=== PATIENT | male | born 1940 | race Caucasian/White ===

== ENCOUNTER 2019-07-18 11:58 | Outpatient (CLI) | payer MEDICARE, OTHER ==
[2019-07-19 12:52] LABS: SARS-CoV-2 MS2 Positive; SARS-CoV-2 N Gene Negative; SARS-CoV-2 S Gene Negative; SARS-CoV-2 orf1ab Negative
== END 2019-07-18 11:59 | disposition home or self-care (01) ==
LOC: SCSLAB 11:58
PROVIDERS: ATTEND Internal Medicine Cardiovascular Disease
DX: Z01.812 Encounter for preprocedural laboratory examination (principal); Z11.59 Encounter for screening for other viral diseases
CPT/HCPCS: 87635; U0003

== ENCOUNTER 2020-04-16 08:57 | Outpatient (CLI) | payer MEDICARE | END 2020-04-16 08:58 | disposition home or self-care (01) | LOC: BICMRI 08:57 | PROVIDERS: ATTEND Specialist | DX: M47.26 Other spondylosis with radiculopathy, lumbar region (principal); M99.83 Other biomechanical lesions of lumbar region | CPT/HCPCS: 72148 ==

== ENCOUNTER 2022-11-24 14:05 | Inpatient (IN) | payer MEDICARE ==
[2022-11-24 15:07] LABS: #Eosinphils 0.1 thou/uL (0.0-0.7); #Monocytes 1.1 thou/uL (0.11-0.59); #Neutrophils 11.2 thou/uL (1.40-6.50); %Basophils 0.2 % (0.0-1.0); %Eosinophils 0.6 % (0.0-10.0); %Lymphocytes 3.1 % (21.0-51.0); %Monocytes 8.1 % (0.0-10.0); %Neutrophils 85.8 % (42.0-75.0); Hematocrit 39.5 % (42.0-52.0); Hemoglobin 13.6 g/dL (14.0-18.0); Mean Corpuscular HGB CONC 34.4 g/dL (32.0-36.0); Mean Corpuscular Hemoglobin 30.4 pg (27.0-31.0); Mean Corpuscular Volume 88.2 fl (78.0-98.0); Mean Platelet Volume 9.8 fL (7.4-10.4); Platelet Count 345 10x3/uL (130-400); RBC Distribution Width 13.2 % (11.5-14.5); Red Blood Cell (RBC) Count 4.48 mill/uL (4.70-6.10)
[2022-11-24 15:30] LABS: ALT (SGPT) 12 U/L (8-55); AST (SGOT) 15 U/L (5-34); Albumin 3.3 g/dL (3.4-4.8); Alkaline Phosphatase 84 U/L (40-110); Anion Gap 22 mmol/L (10-20); Bilirubin, Total 0.4 mg/dL (0.2-1.2); CK (CPK) 115 U/L (30-200); Calc. Creatinine Clearance 0 mL/min (70-130); Calcium 8.3 mg/dL (7.8-10.44); Carbon Dioxide 20 mmol/L (23-31); Chloride 100 mmol/L (98-107); Estimated GFR 6; Globulin 2.3 g/dL (2.4-3.5); Glucose 110 mg/dL (83-110); Lipase 184 U/L (8-78); Potassium 3.3 mmol/L (3.5-5.1); Protein, Total 5.6 g/dL (5.8-8.1); Sodium 139 mmol/L (136-145)
[2022-11-24 15:33] LABS: Troponin I 0.077 ng/mL (< 0.028)
[2022-11-24 15:43] LABS: BUN (Urea Nitrogen) 148 mg/dL (8.4-25.7)
[2022-11-24 17:26] LABS: Bacteria/HPF None Seen HPF (None Seen); Bilirubin Negative (Negative); Blood, Urine 3+ (Negative); CAUTI Indications for Culture Alt mental st,lethar; Clarity Extra Turbid (Clear); Glucose, Urine (Dipstick) Normal (Negative); Ketone, Urine Negative (Negative); Leukocyte 250 Leu/uL (Negative); Nitrite Negative (Negative); Protein, Urine (Dipstick) 50 mg/dL (Neg-Trace); RBC/HPF Greater than 50 HPF (0-3); Specific Gravity, Urine 1.012 (1.002-1.036); Squamous Epithelial None Seen HPF (0-3); Urobilinogen Normal mg/dL (Less than 2); WBC/HPF 21-50 HPF (0-3)
[2022-11-24 17:31] LABS: Urine Culture Reflex Yes Yes
[2022-11-24] MEDS ORDERED: Senokot S 8.6-50 MG TAB PO PRN (18:42)
[2022-11-24] MEDS ORDERED: Acetaminophen 650 MG Suppository PR PRN (18:42)
[2022-11-24] MEDS ORDERED: Acetaminophen 325 MG TAB PO PRN (18:42)
[2022-11-24] MEDS ORDERED: Ondansetron ODT 4 MG TAB PO PRN (18:42)
[2022-11-24 19:31] LABS: Troponin I 0.066 ng/mL (< 0.028)
[2022-11-24] MEDS: Sodium Chloride 0.9% 1,000 ML IV SCH (20:07)
[2022-11-24] MEDS ORDERED: cefTRIAXone (ROCEPHIN) 1 GM VIAL ONE (20:57)
[2022-11-24] MEDS: cefTRIAXone\\ROCEPHIN 1 GM in Sodium Chloride 0.9% 100 ML IVPB SCH (21:12)
[2022-11-24 22:23] VITALS: BMI 32.0
[2022-11-24 23:36] LABS: Troponin I 0.062 ng/mL (< 0.028)
[2022-11-25] MEDS: Sodium Chloride 0.9% 1,000 ML IV SCH ×3 (04:02→17:37)
[2022-11-25 04:31] LABS: #Basophils 0.1 thou/uL (0.0-0.2); #Eosinphils 0.2 thou/uL (0.0-0.7); #Monocytes 0.9 thou/uL (0.11-0.59); #Neutrophils 8.5 thou/uL (1.40-6.50); %Basophils 0.6 % (0.0-1.0); %Eosinophils 1.5 % (0.0-10.0); %Lymphocytes 4.6 % (21.0-51.0); %Monocytes 8.4 % (0.0-10.0); %Neutrophils 82.2 % (42.0-75.0); Hematocrit 38.9 % (42.0-52.0); Hemoglobin 13.3 g/dL (14.0-18.0); Mean Corpuscular HGB CONC 34.2 g/dL (32.0-36.0); Mean Corpuscular Hemoglobin 30.6 pg (27.0-31.0); Mean Corpuscular Volume 89.4 fl (78.0-98.0); Mean Platelet Volume 11.7 fL (7.4-10.4); Platelet Count 274 10x3/uL (130-400); RBC Distribution Width 13.2 % (11.5-14.5); Red Blood Cell (RBC) Count 4.35 mill/uL (4.70-6.10); White Blood Cell (WBC) Count 10.4 10x3/uL (4.8-10.8)
[2022-11-25 05:02] LABS: Anion Gap 19 mmol/L (10-20); Calc. Creatinine Clearance 20 mL/min (70-130); Calcium 8.6 mg/dL (7.8-10.44); Carbon Dioxide 20 mmol/L (23-31); Chloride 108 mmol/L (98-107); Estimated GFR 13; Glucose 111 mg/dL (83-110); Potassium 3.2 mmol/L (3.5-5.1); Sodium 144 mmol/L (136-145)
[2022-11-25 05:13] LABS: BUN (Urea Nitrogen) 110 mg/dL (8.4-25.7)
[2022-11-25] MEDS ORDERED: Dronedarone HCl 400 MG TAB PO SCH (09:00)
[2022-11-25] MEDS ORDERED: FLU VACC QS2023(65UP)/MF59C/PF 60 MCG/0.5 ML SYRINGE IM ONE (09:00)
[2022-11-25] MEDS ORDERED: Cyanocobalamin (Vitamin B-12) 1,000 MCG TAB PO SCH (09:00)
[2022-11-25] MEDS ORDERED: Cholecalciferol 1,000 UNITS (25 MCG) TAB PO SCH (09:00)
[2022-11-25] MEDS ORDERED: Potassium Chloride 20 MEQ TAB PO SCH (13:30)
[2022-11-25] MEDS: Dronedarone HCl 400 MG TAB PO SCH (16:52)
[2022-11-25] MEDS: Tamsulosin HCl 0.4 MG CAP PO SCH (20:18)
[2022-11-25] MEDS: cefTRIAXone\\ROCEPHIN 1 GM in Sodium Chloride 0.9% 100 ML IVPB SCH (20:18)
[2022-11-25] MEDS: Atorvastatin Calcium 40 MG TAB PO SCH (20:18)
[2022-11-26] MEDS: Sodium Chloride 0.9% 1,000 ML IV SCH (02:15)
[2022-11-26 05:08] LABS: #Eosinphils 0.2 thou/uL (0.0-0.7); #Monocytes 0.9 thou/uL (0.11-0.59); #Neutrophils 8.1 thou/uL (1.40-6.50); %Basophils 0.4 % (0.0-1.0); %Eosinophils 2.1 % (0.0-10.0); %Lymphocytes 4.9 % (21.0-51.0); %Monocytes 9.3 % (0.0-10.0); %Neutrophils 80.5 % (42.0-75.0); Hematocrit 37.7 % (42.0-52.0); Hemoglobin 12.3 g/dL (14.0-18.0); Mean Corpuscular HGB CONC 32.6 g/dL (32.0-36.0); Mean Corpuscular Hemoglobin 30.2 pg (27.0-31.0); Mean Corpuscular Volume 92.6 fl (78.0-98.0); Mean Platelet Volume 9.9 fL (7.4-10.4); Platelet Count 278 10x3/uL (130-400); RBC Distribution Width 13.4 % (11.5-14.5); Red Blood Cell (RBC) Count 4.07 mill/uL (4.70-6.10)
[2022-11-26 05:45] LABS: Anion Gap 12 mmol/L (10-20); BUN (Urea Nitrogen) 59 mg/dL (8.4-25.7); Calc. Creatinine Clearance 77 mL/min (70-130); Calcium 8.5 mg/dL (7.8-10.44); Carbon Dioxide 26 mmol/L (23-31); Chloride 111 mmol/L (98-107); Estimated GFR 65; Glucose 117 mg/dL (83-110); Potassium 2.8 mmol/L (3.5-5.1); Sodium 146 mmol/L (136-145)
[2022-11-26] MEDS: Dronedarone HCl 400 MG TAB PO SCH ×2 (09:15→18:13)
[2022-11-26] MEDS: D5 1/2 NS w/40 mEq KCL 1,000 ML IV SCH ×2 (09:15→18:21)
[2022-11-26] MEDS ORDERED: Potassium Chloride 20 MEQ TAB PO SCH ×2 (09:30→13:00)
[2022-11-26] MEDS: Tamsulosin HCl 0.4 MG CAP PO SCH (21:22)
[2022-11-26] MEDS: cefTRIAXone\\ROCEPHIN 1 GM in Sodium Chloride 0.9% 100 ML IVPB SCH (21:22)
[2022-11-26] MEDS: Atorvastatin Calcium 40 MG TAB PO SCH (21:22)
[2022-11-27] MEDS: D5 1/2 NS w/40 mEq KCL 1,000 ML IV SCH ×2 (04:09→14:31)
[2022-11-27 04:35] LABS: #Basophils 0.1 thou/uL (0.0-0.2); #Eosinphils 0.5 thou/uL (0.0-0.7); #Monocytes 0.8 thou/uL (0.11-0.59); #Neutrophils 8.5 thou/uL (1.40-6.50); %Basophils 0.7 % (0.0-1.0); %Eosinophils 4.2 % (0.0-10.0); %Lymphocytes 6.1 % (21.0-51.0); %Monocytes 7.4 % (0.0-10.0); %Neutrophils 78.9 % (42.0-75.0); Hematocrit 35.9 % (42.0-52.0); Hemoglobin 11.9 g/dL (14.0-18.0); Mean Corpuscular HGB CONC 33.1 g/dL (32.0-36.0); Mean Corpuscular Hemoglobin 30.4 pg (27.0-31.0); Mean Corpuscular Volume 91.6 fl (78.0-98.0); Mean Platelet Volume 9.8 fL (7.4-10.4); Platelet Count 279 10x3/uL (130-400); RBC Distribution Width 13.6 % (11.5-14.5); Red Blood Cell (RBC) Count 3.92 mill/uL (4.70-6.10); White Blood Cell (WBC) Count 10.7 10x3/uL (4.8-10.8)
[2022-11-27 04:55] LABS: Anion Gap 13 mmol/L (10-20); BUN (Urea Nitrogen) 21 mg/dL (8.4-25.7); Calc. Creatinine Clearance 122 mL/min (70-130); Calcium 8.2 mg/dL (7.8-10.44); Carbon Dioxide 25 mmol/L (23-31); Chloride 111 mmol/L (98-107); Estimated GFR 92; Glucose 136 mg/dL (83-110); Potassium 3.8 mmol/L (3.5-5.1); Sodium 145 mmol/L (136-145)
[2022-11-27] MEDS: Dronedarone HCl 400 MG TAB PO SCH ×2 (09:26→16:48)
[2022-11-27] MEDS: Tamsulosin HCl 0.4 MG CAP PO SCH (20:33)
[2022-11-27] MEDS: cefTRIAXone\\ROCEPHIN 1 GM in Sodium Chloride 0.9% 100 ML IVPB SCH (20:33)
[2022-11-27] MEDS: Atorvastatin Calcium 40 MG TAB PO SCH (20:33)
[2022-11-28 05:08] LABS: #Basophils 0.1 thou/uL (0.0-0.2); #Eosinphils 0.5 thou/uL (0.0-0.7); #Neutrophils 9.1 thou/uL (1.40-6.50); %Basophils 0.6 % (0.0-1.0); %Eosinophils 4.1 % (0.0-10.0); %Lymphocytes 6.7 % (21.0-51.0); %Monocytes 8.3 % (0.0-10.0); %Neutrophils 76.7 % (42.0-75.0); Hematocrit 36.1 % (42.0-52.0); Hemoglobin 11.9 g/dL (14.0-18.0); Mean Corpuscular Hemoglobin 30.2 pg (27.0-31.0); Mean Corpuscular Volume 91.6 fl (78.0-98.0); Mean Platelet Volume 10.8 fL (7.4-10.4); Platelet Count 238 10x3/uL (130-400); RBC Distribution Width 13.5 % (11.5-14.5); Red Blood Cell (RBC) Count 3.94 mill/uL (4.70-6.10); White Blood Cell (WBC) Count 11.8 10x3/uL (4.8-10.8)
[2022-11-28 05:26] LABS: Anion Gap 14 mmol/L (10-20); BUN (Urea Nitrogen) 14 mg/dL (8.4-25.7); Calc. Creatinine Clearance 122 mL/min (70-130); Calcium 8.3 mg/dL (7.8-10.44); Carbon Dioxide 21 mmol/L (23-31); Chloride 111 mmol/L (98-107); Estimated GFR 92; Glucose 104 mg/dL (83-110); Potassium 4.2 mmol/L (3.5-5.1); Sodium 142 mmol/L (136-145)
[2022-11-28] MEDS: Dronedarone HCl 400 MG TAB PO SCH ×2 (09:17→17:07)
[2022-11-28] MEDS: cefTRIAXone\\ROCEPHIN 1 GM in Sodium Chloride 0.9% 100 ML IVPB SCH (21:02)
[2022-11-28] MEDS: Tamsulosin HCl 0.4 MG CAP PO SCH (21:02)
[2022-11-28] MEDS: Atorvastatin Calcium 40 MG TAB PO SCH (21:02)
[2022-11-29 06:13] LABS: #Basophils 0.1 thou/uL (0.0-0.2); #Eosinphils 0.3 thou/uL (0.0-0.7); #Monocytes 0.9 thou/uL (0.11-0.59); %Basophils 0.5 % (0.0-1.0); %Monocytes 8.1 % (0.0-10.0); %Neutrophils 78.8 % (42.0-75.0); Hematocrit 37.6 % (42.0-52.0); Mean Corpuscular HGB CONC 31.9 g/dL (32.0-36.0); Mean Corpuscular Hemoglobin 30.1 pg (27.0-31.0); Mean Corpuscular Volume 94.2 fl (78.0-98.0); Mean Platelet Volume 9.6 fL (7.4-10.4); Platelet Count 277 10x3/uL (130-400); RBC Distribution Width 13.3 % (11.5-14.5); Red Blood Cell (RBC) Count 3.99 mill/uL (4.70-6.10); White Blood Cell (WBC) Count 11.4 10x3/uL (4.8-10.8)
[2022-11-29 06:36] LABS: Anion Gap 11 mmol/L (10-20); BUN (Urea Nitrogen) 12 mg/dL (8.4-25.7); Calc. Creatinine Clearance 124 mL/min (70-130); Calcium 8.3 mg/dL (7.8-10.44); Carbon Dioxide 27 mmol/L (23-31); Chloride 108 mmol/L (98-107); Estimated GFR 92; Glucose 109 mg/dL (83-110); Potassium 3.7 mmol/L (3.5-5.1); Sodium 142 mmol/L (136-145)
[2022-11-29] MEDS: Dronedarone HCl 400 MG TAB PO SCH ×2 (08:25→17:36)
[2022-11-29] MEDS: Atorvastatin Calcium 40 MG TAB PO SCH (20:35)
[2022-11-29] MEDS: Tamsulosin HCl 0.4 MG CAP PO SCH (20:37)
[2022-11-30] MEDS: Dronedarone HCl 400 MG TAB PO SCH ×2 (09:50→17:51)
[2022-11-30] MEDS: Atorvastatin Calcium 40 MG TAB PO SCH (19:54)
[2022-11-30] MEDS: Tamsulosin HCl 0.4 MG CAP PO SCH (19:54)
[2022-12-01] MEDS: Dronedarone HCl 400 MG TAB PO SCH ×2 (09:29→17:32)
[2022-12-01] MEDS: Guaifenesin DM 100-10/5 ML UDCUP PO PRN ×2 (11:39→17:42)
[2022-12-01] MEDS: Atorvastatin Calcium 40 MG TAB PO SCH (20:17)
[2022-12-01] MEDS: Tamsulosin HCl 0.4 MG CAP PO SCH (20:17)
[2022-12-02 05:47] LABS: #Basophils 0.1 thou/uL (0.0-0.2); #Eosinphils 0.3 thou/uL (0.0-0.7); #Monocytes 0.6 thou/uL (0.11-0.59); #Neutrophils 6.2 thou/uL (1.40-6.50); %Basophils 0.7 % (0.0-1.0); %Eosinophils 3.4 % (0.0-10.0); %Monocytes 7.5 % (0.0-10.0); %Neutrophils 77.4 % (42.0-75.0); Hematocrit 36.8 % (42.0-52.0); Hemoglobin 11.8 g/dL (14.0-18.0); Mean Corpuscular HGB CONC 32.1 g/dL (32.0-36.0); Mean Corpuscular Hemoglobin 30.3 pg (27.0-31.0); Mean Corpuscular Volume 94.6 fl (78.0-98.0); Mean Platelet Volume 9.7 fL (7.4-10.4); Platelet Count 267 10x3/uL (130-400); RBC Distribution Width 13.2 % (11.5-14.5); Red Blood Cell (RBC) Count 3.89 mill/uL (4.70-6.10)
[2022-12-02 06:25] LABS: Anion Gap 12 mmol/L (10-20); BUN (Urea Nitrogen) 14 mg/dL (8.4-25.7); Calc. Creatinine Clearance 129 mL/min (70-130); Calcium 8.4 mg/dL (7.8-10.44); Carbon Dioxide 27 mmol/L (23-31); Chloride 107 mmol/L (98-107); Estimated GFR 93; Glucose 99 mg/dL (83-110); Potassium 3.9 mmol/L (3.5-5.1); Sodium 142 mmol/L (136-145)
[2022-12-02] MEDS: Dronedarone HCl 400 MG TAB PO SCH ×2 (08:35→17:00)
[2022-12-02] MEDS: Atorvastatin Calcium 40 MG TAB PO SCH (20:09)
[2022-12-02] MEDS: Tamsulosin HCl 0.4 MG CAP PO SCH (20:09)
[2022-12-03] MEDS: Dronedarone HCl 400 MG TAB PO SCH ×2 (08:49→17:15)
[2022-12-03 11:55] LABS: #Basophils 0.1 thou/uL (0.0-0.2); #Eosinphils 0.2 thou/uL (0.0-0.7); #Monocytes 0.6 thou/uL (0.11-0.59); #Neutrophils 5.9 thou/uL (1.40-6.50); %Basophils 0.7 % (0.0-1.0); %Eosinophils 2.9 % (0.0-10.0); %Lymphocytes 7.7 % (21.0-51.0); %Monocytes 8.5 % (0.0-10.0); %Neutrophils 78.6 % (42.0-75.0); Hematocrit 36.5 % (42.0-52.0); Hemoglobin 11.8 g/dL (14.0-18.0); Mean Corpuscular HGB CONC 32.3 g/dL (32.0-36.0); Mean Corpuscular Hemoglobin 30.6 pg (27.0-31.0); Mean Corpuscular Volume 94.8 fl (78.0-98.0); Mean Platelet Volume 9.4 fL (7.4-10.4); Platelet Count 254 10x3/uL (130-400); RBC Distribution Width 13.3 % (11.5-14.5); Red Blood Cell (RBC) Count 3.85 mill/uL (4.70-6.10); White Blood Cell (WBC) Count 7.5 10x3/uL (4.8-10.8)
[2022-12-03] MEDS: Tamsulosin HCl 0.4 MG CAP PO SCH (20:34)
[2022-12-03] MEDS: Atorvastatin Calcium 40 MG TAB PO SCH (20:34)
[2022-12-03] MEDS: Guaifenesin DM 100-10/5 ML UDCUP PO PRN (20:34)
[2022-12-03] MEDS: Apixaban 5 MG TAB PO SCH (20:34)
[2022-12-04 00:36] VITALS: TEMP 97.7
[2022-12-04] MEDS: Aspirin Chewable 81 MG TAB PO SCH (09:11)
[2022-12-04] MEDS: Apixaban 5 MG TAB PO SCH (09:11)
[2022-12-04] MEDS: Dronedarone HCl 400 MG TAB PO SCH ×2 (09:11→17:05)
[2022-12-04 16:31] LABS: Specific Gravity, Urine 1.025 (1.005-1.030); pH, Urine 5.5 (5.0-9.0)
[2022-12-04 16:34] LABS: Bilirubin Unable to Interpret (Negative); Blood, Urine Unable to Interpret (Negative); Clarity Hazy (Clear); Glucose, Urine (Dipstick) Unable to Interpret mg/dL (Negative); Ketone, Urine Unable to Interpret mg/dL (Negative); Leukocyte Unable to Interpret (Negative); Nitrite Unable to Interpret (Negative); Protein, Urine (Dipstick) Unable to Interpret mg/dL (Neg-Trace); Urobilinogen UNABLE TO INTERPRET mg/dL (Less than 2)
[2022-12-04 16:35] LABS: Bacteria/HPF Rare-Few HPF (None Seen); RBC/HPF Greater than 50 HPF (0-3); Squamous Epithelial None Seen HPF (0-3); WBC/HPF 0-3 HPF (0-3)
[2022-12-04] MEDS: Guaifenesin DM 100-10/5 ML UDCUP PO PRN (17:05)
[2022-12-04] MEDS: Atorvastatin Calcium 40 MG TAB PO SCH (20:49)
[2022-12-04] MEDS: Tamsulosin HCl 0.4 MG CAP PO SCH (20:49)
[2022-12-05 04:36] LABS: #Eosinphils 0.2 thou/uL (0.0-0.7); #Monocytes 0.7 thou/uL (0.11-0.59); #Neutrophils 5.6 thou/uL (1.40-6.50); %Basophils 0.5 % (0.0-1.0); %Eosinophils 3.1 % (0.0-10.0); %Monocytes 9.3 % (0.0-10.0); %Neutrophils 76.9 % (42.0-75.0); Hematocrit 36.8 % (42.0-52.0); Hemoglobin 11.9 g/dL (14.0-18.0); Mean Corpuscular HGB CONC 32.3 g/dL (32.0-36.0); Mean Corpuscular Hemoglobin 30.4 pg (27.0-31.0); Mean Corpuscular Volume 93.9 fl (78.0-98.0); Mean Platelet Volume 9.7 fL (7.4-10.4); Platelet Count 214 10x3/uL (130-400); RBC Distribution Width 13.5 % (11.5-14.5); Red Blood Cell (RBC) Count 3.92 mill/uL (4.70-6.10); White Blood Cell (WBC) Count 7.3 10x3/uL (4.8-10.8)
[2022-12-05 05:05] LABS: Anion Gap 9 mmol/L (10-20); BUN (Urea Nitrogen) 13 mg/dL (8.4-25.7); Calc. Creatinine Clearance 127 mL/min (70-130); Calcium 8.5 mg/dL (7.8-10.44); Carbon Dioxide 28 mmol/L (23-31); Chloride 106 mmol/L (98-107); Estimated GFR 93; Glucose 95 mg/dL (83-110); Sodium 139 mmol/L (136-145)
[2022-12-05] MEDS: Dronedarone HCl 400 MG TAB PO SCH (09:46)
[2022-12-05] MEDS: Aspirin Chewable 81 MG TAB PO SCH (09:46)
[2022-12-05] MEDS: Guaifenesin DM 100-10/5 ML UDCUP PO PRN (13:46)
[2022-12-05 15:55] VITALS: BP 123/78
== END 2022-12-05 16:43 | DRG 683 ==
LOC: ERS 14:05 → ERHOLD 18:46 → 2NO 23:41 → T4-B 11-28 18:01 → 2NO 11-28 18:01 → T4-B 11-28 18:57
PROVIDERS: ADMIT Family Medicine; ATTEND Internal Medicine
PROC: 0T9B70Z Drainage of Bladder with Drainage Device, Via Natural or Artificial Opening (ICD-10-PCS; principal; 2022-11-24)
DX: N17.0 Acute kidney failure with tubular necrosis (principal); E87.1 Hypo-osmolality and hyponatremia; E87.29 Other acidosis; I48.20 Chronic atrial fibrillation, unspecified; K92.2 Gastrointestinal hemorrhage, unspecified; N13.9 Obstructive and reflux uropathy, unspecified; N13.6 Pyonephrosis; G47.33 Obstructive sleep apnea (adult) (pediatric); I10 Essential (primary) hypertension; E78.5 Hyperlipidemia, unspecified; S49.90XA Unspecified injury of shoulder and upper arm, unspecified arm, initial encounter; I25.10 Atherosclerotic heart disease of native coronary artery without angina pectoris; W18.30XA Fall on same level, unspecified, initial encounter; N32.89 Other specified disorders of bladder; I48.91 Unspecified atrial fibrillation; E87.6 Hypokalemia; N40.1 Benign prostatic hyperplasia with lower urinary tract symptoms; R31.0 Gross hematuria; E66.01 Morbid (severe) obesity due to excess calories; Z95.818 Presence of other cardiac implants and grafts; Z98.890 Other specified postprocedural states; Z68.32 Body mass index [BMI] 32.0-32.9, adult
CPT/HCPCS: 36415; 51702; 71045; 74176; 80048; 80053; 81001; 81003; 81015; 82550; 83690; 84484; 85025; 87086; 93005; 96360; 96361; J0696; J3480; J3490; J7050

== ENCOUNTER 2023-01-11 01:54 | Inpatient (IN) | payer MEDICARE ==
[2023-01-11] MEDS ORDERED: Piperacillin/Tazobactam 4.5 GM VIAL ONE (02:17)
[2023-01-11] MEDS ORDERED: Vancomycin 1 GM/200 ML (FROZEN) BAG ONE (02:17)
[2023-01-11] MEDS ORDERED: Sodium Chloride 0.9% 100 ML ONE (02:18)
[2023-01-11 02:43] LABS: Actual Bicarbonate (HCO3v) 35.3 mEq/L (22-28); Base Excess 12.7 mEq/L (-2.0 to +3.0); Calcium, Ionized (venous) 0.96 mmol/L (1.16-1.32); Chloride (VBG) 93 mmol/L (98-106); Hematocrit-VBG 33 % (42.0-52.0); Hemoglobin (Hb) 11.2 g/dL (12.6-17.4); Sodium 136 mmol/L (133-146); pH (venous) 7.592 (7.32-7.43)
[2023-01-11 02:45] LABS: Potassium (VBG) 2.14 mmol/L (3.70-5.30)
[2023-01-11 02:54] LABS: Bacteria/HPF None Seen HPF (None Seen); Bilirubin Negative (Negative); Blood, Urine 3+ (Negative); CAUTI Indications for Culture Alt mental st,lethar; Clarity Extra Turbid (Clear); Glucose, Urine (Dipstick) Normal (Negative); Ketone, Urine Negative (Negative); Leukocyte 500 Leu/uL (Negative); Nitrite Negative (Negative); Protein, Urine (Dipstick) 100 mg/dL (Neg-Trace); RBC/HPF Greater than 50 HPF (0-3); Specific Gravity, Urine 1.018 (1.002-1.036); Squamous Epithelial 0-3 HPF (0-3); Transitional Epithelial 0-3 HPF (None Seen); WBC/HPF Greater than 50 HPF (0-3)
[2023-01-11 02:58] LABS: #Eosinphils 0.1 thou/uL (0.0-0.7); #Monocytes 0.8 thou/uL (0.11-0.59); #Neutrophils 8.3 thou/uL (1.40-6.50); %Basophils 0.2 % (0.0-1.0); %Eosinophils 1.2 % (0.0-10.0); %Lymphocytes 5.5 % (21.0-51.0); %Neutrophils 81.3 % (42.0-75.0); Hematocrit 31.8 % (42.0-52.0); Hemoglobin 10.5 g/dL (14.0-18.0); Mean Corpuscular Hemoglobin 29.4 pg (27.0-31.0); Mean Corpuscular Volume 89.1 fl (78.0-98.0); Platelet Count 244 10x3/uL (130-400); RBC Distribution Width 14.3 % (11.5-14.5); Red Blood Cell (RBC) Count 3.57 mill/uL (4.70-6.10); White Blood Cell (WBC) Count 10.2 10x3/uL (4.8-10.8)
[2023-01-11 02:58] LABS: Urine Culture Reflex Yes Yes
[2023-01-11 03:21] LABS: ALT (SGPT) Less than 7 U/L (8-55); AST (SGOT) 10 U/L (5-34); Albumin 2.5 g/dL (3.4-4.8); Alkaline Phosphatase 84 U/L (40-110); Anion Gap 13 mmol/L (10-20); BUN (Urea Nitrogen) 13 mg/dL (8.4-25.7); Calc. Creatinine Clearance 0 mL/min (70-130); Calcium 8.1 mg/dL (7.8-10.44); Carbon Dioxide 37 mmol/L (23-31); Chloride 92 mmol/L (98-107); Estimated GFR 90; Globulin 2.7 g/dL (2.4-3.5); Glucose 101 mg/dL (83-110); Protein, Total 5.2 g/dL (5.8-8.1); Sodium 140 mmol/L (136-145)
[2023-01-11 03:24] LABS: Potassium 2.1 mmol/L (3.5-5.1); Troponin I 0.024 ng/mL (< 0.028)
[2023-01-11] MEDS ORDERED: Potassium Bicarbonate/Cit Ac 20 MEQ TAB ONE (03:34)
[2023-01-11] MEDS ORDERED: Potassium Chloride 20 MEQ/100 ML PREMIX BAG ONE (03:34)
[2023-01-11] MEDS ORDERED: Magnesium 2 GM/50 ML BAG (IN WATER) ONE (03:34)
[2023-01-11] MEDS ORDERED: Potassium Chloride 20 MEQ TAB ONE (03:35)
[2023-01-11 04:30] LABS: Magnesium 1.9 mg/dL (1.6-2.6)
[2023-01-11] MEDS ORDERED: Ondansetron PF 4 MG/2 ML Vial IVP PRN (04:45)
[2023-01-11] MEDS ORDERED: Ondansetron ODT 4 MG TAB SL PRN (04:45)
[2023-01-11] MEDS ORDERED: Acetaminophen 325 MG TAB PO PRN ×2 (04:45→05:09)
[2023-01-11] MEDS ORDERED: Senokot S 8.6-50 MG TAB PO PRN (05:04)
[2023-01-11] MEDS ORDERED: Electrolyte Replacement Protocol 1 EACH FS SCH (05:08)
[2023-01-11 06:50] LABS: Troponin I 0.012 ng/mL (< 0.028)
[2023-01-11] MEDS ORDERED: Dronedarone HCl 400 MG TAB PO SCH ×2 (08:00→11:00)
[2023-01-11] MEDS ORDERED: Famotidine 20 MG TAB PO SCH ×2 (09:00→11:00)
[2023-01-11] MEDS ORDERED: Iopamidol 370 76% 100 ML VIAL ONE (10:05)
[2023-01-11 11:07] LABS: Anion Gap 14 mmol/L (10-20); BUN (Urea Nitrogen) 11 mg/dL (8.4-25.7); Calc. Creatinine Clearance 116 mL/min (70-130); Calcium 7.9 mg/dL (7.8-10.44); Carbon Dioxide 32 mmol/L (23-31); Chloride 95 mmol/L (98-107); Estimated GFR 91; Glucose 95 mg/dL (83-110); Potassium 3.1 mmol/L (3.5-5.1); Sodium 138 mmol/L (136-145)
[2023-01-11 11:21] LABS: Phosphorus 2.5 mg/dL (2.3-4.7)
[2023-01-11] MEDS ORDERED: Vancomycin HCl 500 MG in Sodium Chloride 0.9% 100 ML IVPB SCH (11:45)
[2023-01-11] MEDS: Cholecalciferol 1,000 UNITS (25 MCG) TAB PO SCH (12:07)
[2023-01-11] MEDS: Cyanocobalamin (Vitamin B-12) 1,000 MCG TAB PO SCH (12:07)
[2023-01-11] MEDS: Piperacillin/Tazobactam 3.375 GM in Sodium Chloride 0.9% 100 ML IVPB SCH ×3 (12:08→21:33)
[2023-01-11 12:48] LABS: Troponin I 0.022 ng/mL (< 0.028)
[2023-01-11] MEDS ORDERED: Potassium Chloride 20 MEQ TAB PO SCH (15:00)
[2023-01-11] MEDS ORDERED: NS 0.9% w/ 40 MEQ KCL 1,000 ML IV SCH (16:15)
[2023-01-11] MEDS: Dronedarone HCl 400 MG TAB PO SCH (16:23)
[2023-01-11] MEDS: Famotidine 20 MG TAB PO SCH (21:33)
[2023-01-11] MEDS: Tamsulosin HCl 0.4 MG CAP PO SCH (21:33)
[2023-01-11] MEDS: Rosuvastatin 20 MG TAB PO SCH (21:33)
[2023-01-12 05:03] LABS: Hematocrit 30.6 % (42.0-52.0); Hemoglobin 9.8 g/dL (14.0-18.0); Manual Diff?? YES; Mean Corpuscular Hemoglobin 28.8 pg (27.0-31.0); Mean Platelet Volume 10.3 fL (7.4-10.4); Platelet Count 241 10x3/uL (130-400); RBC Distribution Width 14.6 % (11.5-14.5); White Blood Cell (WBC) Count 11.5 10x3/uL (4.8-10.8)
[2023-01-12 05:10] LABS: Delete Auto Diff?? YES
[2023-01-12 05:56] LABS: Band 5 % (5-11); CellaVision Operator ID lab.abc; Eosinophils 3 % (0-10); Lymphocytes 5 % (21-51); Monocytes 4 % (0-10); Neutrophil 82 % (42-75); Platelet Adequacy Comment Platelets Normal; Polychromasia SLIGHT = 2-3 cells HPF (0-2); Reactive Lymphocytes 1 % (0-10); Smudge Cells 9.1 %; Total Cell Count 99
[2023-01-12 06:00] LABS: Anion Gap 13 mmol/L (10-20); BUN (Urea Nitrogen) 15 mg/dL (8.4-25.7); Calc. Creatinine Clearance 100 mL/min (70-130); Calcium 7.7 mg/dL (7.8-10.44); Carbon Dioxide 31 mmol/L (23-31); Chloride 96 mmol/L (98-107); Estimated GFR 87; Glucose 120 mg/dL (83-110); Potassium 3.1 mmol/L (3.5-5.1); Sodium 137 mmol/L (136-145)
[2023-01-12 06:04] LABS: Phosphorus 1.6 mg/dL (2.3-4.7)
[2023-01-12] MEDS ORDERED: Magnesium 2 GM/50 ML(in water) 2 GM in Premix 1 BAG IVPB SCH (08:00)
[2023-01-12] MEDS ORDERED: Potassium Chloride 20 MEQ TAB PO SCH (08:00)
[2023-01-12] MEDS: Cholecalciferol 1,000 UNITS (25 MCG) TAB PO SCH (09:26)
[2023-01-12] MEDS: Dronedarone HCl 400 MG TAB PO SCH ×2 (09:26→17:46)
[2023-01-12] MEDS: Cyanocobalamin (Vitamin B-12) 1,000 MCG TAB PO SCH (09:27)
[2023-01-12] MEDS: Famotidine 20 MG TAB PO SCH ×2 (09:27→20:58)
[2023-01-12] MEDS: PHOS-NAK 1 PKT PACK PO SCH ×2 (09:28→11:30)
[2023-01-12] MEDS: Albumin 25% 25 GM/100 ML BOT IVPB SCH (09:28)
[2023-01-12] MEDS: cefTRIAXone\\ROCEPHIN 2 GM in Sodium Chloride 0.9% 100 ML IVPB SCH (09:34)
[2023-01-12] MEDS: Piperacillin/Tazobactam 3.375 GM in Sodium Chloride 0.9% 100 ML IVPB SCH (09:46)
[2023-01-12] MEDS ORDERED: Vancomycin (BATCH) 1.5 GM in Premix 1 BAG IVPB SCH (12:00)
[2023-01-12] MEDS ORDERED: Potassium Chloride 20 MEQ in Premix 1 BAG IVPB SCH (12:30)
[2023-01-12] MEDS: Lactated Ringer's 1,000 ML IV SCH (17:46)
[2023-01-12] MEDS: Rosuvastatin 20 MG TAB PO SCH (20:58)
[2023-01-12] MEDS: Tamsulosin HCl 0.4 MG CAP PO SCH (20:58)
[2023-01-13 04:51] LABS: Hematocrit 28.8 % (42.0-52.0); Hemoglobin 9.1 g/dL (14.0-18.0); Manual Diff?? YES; Mean Corpuscular HGB CONC 31.6 g/dL (32.0-36.0); Mean Corpuscular Hemoglobin 28.8 pg (27.0-31.0); Mean Corpuscular Volume 91.1 fl (78.0-98.0); Mean Platelet Volume 9.8 fL (7.4-10.4); Platelet Count 211 10x3/uL (130-400); RBC Distribution Width 14.6 % (11.5-14.5); Red Blood Cell (RBC) Count 3.16 mill/uL (4.70-6.10); White Blood Cell (WBC) Count 8.4 10x3/uL (4.8-10.8)
[2023-01-13 04:58] LABS: Delete Auto Diff?? YES
[2023-01-13 05:23] LABS: Anion Gap 12 mmol/L (10-20); BUN (Urea Nitrogen) 16 mg/dL (8.4-25.7); Calc. Creatinine Clearance 125 mL/min (70-130); Calcium 7.8 mg/dL (7.8-10.44); Carbon Dioxide 33 mmol/L (23-31); Chloride 96 mmol/L (98-107); Estimated GFR 93; Glucose 102 mg/dL (83-110); Potassium 3.6 mmol/L (3.5-5.1); Sodium 137 mmol/L (136-145)
[2023-01-13 06:00] LABS: Band 4 % (5-11); CellaVision Operator ID LAB.CLH1; Eosinophils 1 % (0-10); Hypochromia SLIGHT = 6-15 cells HPF (0-5); Large Platelets 0.8 % (0-5); Lymphocytes 8 % (21-51); Metamyelocyte 3 % (0-0); Monocytes 11 % (0-10); Neutrophil 74 % (42-75); Platelet Adequacy Comment Platelets Normal; Polychromasia SLIGHT = 2-3 cells HPF (0-2); Total Cell Count 119
[2023-01-13] MEDS ORDERED: Promethazine HCl 25 MG/ML VIAL IM PRN (09:09)
[2023-01-13] MEDS ORDERED: Ondansetron HCl/PF 4 MG/2 ML Vial IVP PRN (09:09)
[2023-01-13] MEDS ORDERED: HYDROmorphone 2 MG/ML VIAL SLOW IVP PRN (09:09)
[2023-01-13] MEDS ORDERED: cefTRIAXone (ROCEPHIN) 2 GM VIAL ONE (09:45)
[2023-01-13] MEDS ORDERED: Sodium Chloride 0.9% 100 ML ONE (09:45)
[2023-01-13] MEDS ORDERED: Bupivacaine 0.25% HCL 30 ML VIAL ONE (09:47)
[2023-01-13] MEDS ORDERED: EPINEPHrine 1 MG/ML VIAL ONE (09:47)
[2023-01-13] MEDS: cefTRIAXone\\ROCEPHIN 2 GM in Sodium Chloride 0.9% 100 ML IVPB SCH (09:53)
[2023-01-13] MEDS ORDERED: fentaNYL 50 mcg/mL 1 mL Vial ONE (09:57)
[2023-01-13] MEDS ORDERED: SUGAMMADEX SODIUM 200 MG/2 ML VIAL ONE (10:12)
[2023-01-13] MEDS ORDERED: Lidocaine 1% PF 5 ML VIAL ONE (10:26)
[2023-01-13] MEDS ORDERED: PROPOFOL 200 MG/20 ML VIAL ONE (10:26)
[2023-01-13] MEDS ORDERED: Rocuronium Bromide 10 MG/ML (10ML VIAL) ONE (10:26)
[2023-01-13] MEDS ORDERED: ePHEDrine Sulfate 50 MG/10 ML VIAL ONE ×2 (10:26→10:41)
[2023-01-13] MEDS ORDERED: PHENYLEPHRINE-NS 100 MCG/ML 10 ML SYRINGE ONE (10:26)
[2023-01-13] MEDS ORDERED: Succinylcholine Chloride 100 MG/5 ML SYRINGE FS ONE (10:26)
[2023-01-13] MEDS ORDERED: PROPOFOL 20 ML ONE (11:02)
[2023-01-13] MEDS: Lactated Ringer's 1,000 ML IV SCH ×2 (11:23→21:33)
[2023-01-13] MEDS: Cyanocobalamin (Vitamin B-12) 1,000 MCG TAB PO SCH (11:24)
[2023-01-13] MEDS: Cholecalciferol 1,000 UNITS (25 MCG) TAB PO SCH (11:24)
[2023-01-13] MEDS: Famotidine 20 MG TAB PO SCH ×2 (11:24→21:34)
[2023-01-13 11:31] LABS: Phosphorus 2.7 mg/dL (2.3-4.7)
[2023-01-13] MEDS: Dronedarone HCl 400 MG TAB PO SCH ×2 (12:19→17:47)
[2023-01-13] MEDS: Albumin 25% 25 GM/100 ML BOT IVPB SCH (12:19)
[2023-01-13] MEDS: Tamsulosin HCl 0.4 MG CAP PO SCH (21:34)
[2023-01-13] MEDS: Rosuvastatin 20 MG TAB PO SCH (21:34)
[2023-01-14 05:04] LABS: Hematocrit 30.4 % (42.0-52.0); Hemoglobin 9.7 g/dL (14.0-18.0); Manual Diff?? YES; Mean Corpuscular HGB CONC 31.9 g/dL (32.0-36.0); Mean Corpuscular Volume 90.7 fl (78.0-98.0); Mean Platelet Volume 9.9 fL (7.4-10.4); Platelet Count 248 10x3/uL (130-400); RBC Distribution Width 14.6 % (11.5-14.5); Red Blood Cell (RBC) Count 3.35 mill/uL (4.70-6.10); White Blood Cell (WBC) Count 10.3 10x3/uL (4.8-10.8)
[2023-01-14 05:11] LABS: Delete Auto Diff?? YES
[2023-01-14 05:32] LABS: Anion Gap 12 mmol/L (10-20); BUN (Urea Nitrogen) 15 mg/dL (8.4-25.7); Calc. Creatinine Clearance 130 mL/min (70-130); Calcium 7.9 mg/dL (7.8-10.44); Carbon Dioxide 30 mmol/L (23-31); Chloride 99 mmol/L (98-107); Estimated GFR 94; Glucose 109 mg/dL (83-110); Potassium 3.8 mmol/L (3.5-5.1); Sodium 137 mmol/L (136-145)
[2023-01-14 05:45] LABS: Band 5 % (5-11); CellaVision Operator ID lab.sh2; Eosinophils 1 % (0-10); Lymphocytes 4 % (21-51); Monocytes 3 % (0-10); Neutrophil 87 % (42-75); Ovalocytes SLIGHT = 2-5 cells HPF (0-1); Platelet Adequacy Comment Platelets Normal; Polychromasia SLIGHT = 2-3 cells HPF (0-2); Total Cell Count 100
[2023-01-14] MEDS: cefTRIAXone\\ROCEPHIN 2 GM in Sodium Chloride 0.9% 100 ML IVPB SCH (11:08)
[2023-01-14] MEDS: Dronedarone HCl 400 MG TAB PO SCH ×2 (11:08→18:34)
[2023-01-14] MEDS: Cholecalciferol 1,000 UNITS (25 MCG) TAB PO SCH (11:08)
[2023-01-14] MEDS: Cyanocobalamin (Vitamin B-12) 1,000 MCG TAB PO SCH (11:09)
[2023-01-14] MEDS: Famotidine 20 MG TAB PO SCH ×2 (11:09→20:23)
[2023-01-14] MEDS: Lactated Ringer's 1,000 ML IV SCH ×2 (11:10→20:24)
[2023-01-14] MEDS: Morphine 2 MG/ML VIAL SLOW IVP PRN (12:45)
[2023-01-14] MEDS: Rosuvastatin 20 MG TAB PO SCH (20:23)
[2023-01-14] MEDS: Sulfameth/Trimethoprim DS 800-160mg TAB PO SCH (20:23)
[2023-01-14] MEDS: Tamsulosin HCl 0.4 MG CAP PO SCH (20:24)
[2023-01-14] MEDS: traMADol HCl 50 MG TAB PO PRN (20:24)
[2023-01-15] MEDS: Dronedarone HCl 400 MG TAB PO SCH ×2 (08:59→17:11)
[2023-01-15] MEDS: Famotidine 20 MG TAB PO SCH ×2 (08:59→20:46)
[2023-01-15] MEDS: Sulfameth/Trimethoprim DS 800-160mg TAB PO SCH ×2 (09:00→20:45)
[2023-01-15] MEDS: Cyanocobalamin (Vitamin B-12) 1,000 MCG TAB PO SCH (09:00)
[2023-01-15] MEDS: Cholecalciferol 1,000 UNITS (25 MCG) TAB PO SCH (09:00)
[2023-01-15] MEDS: Lactated Ringer's 1,000 ML IV SCH (09:05)
[2023-01-15 09:59] LABS: Hematocrit 32.6 % (42.0-52.0); Hemoglobin 10.5 g/dL (14.0-18.0); Manual Diff?? YES; Mean Corpuscular HGB CONC 32.2 g/dL (32.0-36.0); Mean Corpuscular Hemoglobin 28.8 pg (27.0-31.0); Mean Corpuscular Volume 89.6 fl (78.0-98.0); Mean Platelet Volume 10.5 fL (7.4-10.4); Platelet Count 254 10x3/uL (130-400); RBC Distribution Width 14.7 % (11.5-14.5); Red Blood Cell (RBC) Count 3.64 mill/uL (4.70-6.10); White Blood Cell (WBC) Count 11.2 10x3/uL (4.8-10.8)
[2023-01-15 10:15] LABS: Anion Gap 12 mmol/L (10-20); BUN (Urea Nitrogen) 19 mg/dL (8.4-25.7); Calc. Creatinine Clearance 137 mL/min (70-130); Calcium 8.3 mg/dL (7.8-10.44); Carbon Dioxide 29 mmol/L (23-31); Chloride 99 mmol/L (98-107); Estimated GFR 92; Glucose 113 mg/dL (83-110); Potassium 4.3 mmol/L (3.5-5.1); Sodium 136 mmol/L (136-145)
[2023-01-15 10:16] LABS: Delete Auto Diff?? YES
[2023-01-15 10:55] LABS: Band 1 % (5-11); CellaVision Operator ID LAB.NR; Elliptocytes SLIGHT = 2-5 cells HPF (0-1); Eosinophils 6 % (0-10); Hypochromia SLIGHT = 6-15 cells HPF (0-5); Lymphocytes 3 % (21-51); Monocytes 9 % (0-10); Neutrophil 81 % (42-75); Platelet Adequacy Comment Platelets Normal; Polychromasia SLIGHT = 2-3 cells HPF (0-2); Smudge Cells 5.9 %; Total Cell Count 102
[2023-01-15] MEDS: Furosemide 20 MG TAB PO SCH (13:29)
[2023-01-15] MEDS: Rosuvastatin 20 MG TAB PO SCH (20:45)
[2023-01-15] MEDS: Tamsulosin HCl 0.4 MG CAP PO SCH (20:46)
[2023-01-16 07:35] LABS: Hematocrit 30.6 % (42.0-52.0); Hemoglobin 9.6 g/dL (14.0-18.0); Manual Diff?? YES; Mean Corpuscular HGB CONC 31.4 g/dL (32.0-36.0); Mean Corpuscular Hemoglobin 28.7 pg (27.0-31.0); Mean Corpuscular Volume 91.3 fl (78.0-98.0); Mean Platelet Volume 9.4 fL (7.4-10.4); Platelet Count 270 10x3/uL (130-400); Red Blood Cell (RBC) Count 3.35 mill/uL (4.70-6.10); White Blood Cell (WBC) Count 10.6 10x3/uL (4.8-10.8)
[2023-01-16 07:38] LABS: Delete Auto Diff?? YES
[2023-01-16 07:55] LABS: Anion Gap 10 mmol/L (10-20); BUN (Urea Nitrogen) 19 mg/dL (8.4-25.7); Calc. Creatinine Clearance 133 mL/min (70-130); Calcium 8.1 mg/dL (7.8-10.44); Carbon Dioxide 31 mmol/L (23-31); Chloride 100 mmol/L (98-107); Estimated GFR 91; Glucose 100 mg/dL (83-110); Potassium 4.1 mmol/L (3.5-5.1); Sodium 137 mmol/L (136-145)
[2023-01-16 08:28] LABS: Band 2 % (5-11); Burr Cells SLIGHT = 2-5 cells HPF (0-1); CellaVision Operator ID LAB.GE; Eosinophils 3 % (0-10); Lymphocytes 5 % (21-51); Metamyelocyte 4 % (0-0); Monocytes 5 % (0-10); Myelocyte 2 % (0-0); Neutrophil 79 % (42-75); Platelet Adequacy Comment Platelets Normal; Polychromasia SLIGHT = 2-3 cells HPF (0-2); Total Cell Count 102
[2023-01-16] MEDS: Cholecalciferol 1,000 UNITS (25 MCG) TAB PO SCH (08:56)
[2023-01-16] MEDS: Sulfameth/Trimethoprim DS 800-160mg TAB PO SCH ×2 (08:56→20:40)
[2023-01-16] MEDS: Famotidine 20 MG TAB PO SCH ×2 (08:56→20:39)
[2023-01-16] MEDS: Dronedarone HCl 400 MG TAB PO SCH ×2 (08:56→17:41)
[2023-01-16] MEDS: Furosemide 20 MG TAB PO SCH ×2 (08:57→15:04)
[2023-01-16] MEDS: Morphine 2 MG/ML VIAL SLOW IVP PRN (08:57)
[2023-01-16] MEDS: Cyanocobalamin (Vitamin B-12) 1,000 MCG TAB PO SCH (08:57)
[2023-01-16 12:47] VITALS: BMI 38.0
[2023-01-16] MEDS: Rosuvastatin 20 MG TAB PO SCH (20:40)
[2023-01-16] MEDS: Tamsulosin HCl 0.4 MG CAP PO SCH (20:40)
[2023-01-17] MEDS: Cholecalciferol 1,000 UNITS (25 MCG) TAB PO SCH (09:28)
[2023-01-17] MEDS: Sulfameth/Trimethoprim DS 800-160mg TAB PO SCH ×2 (09:28→21:52)
[2023-01-17] MEDS: Cyanocobalamin (Vitamin B-12) 1,000 MCG TAB PO SCH (09:28)
[2023-01-17] MEDS: Furosemide 20 MG TAB PO SCH (09:28)
[2023-01-17] MEDS: Dronedarone HCl 400 MG TAB PO SCH ×2 (09:28→16:21)
[2023-01-17] MEDS: Famotidine 20 MG TAB PO SCH ×2 (09:29→21:51)
[2023-01-17 10:45] LABS: Hematocrit 32.5 % (42.0-52.0); Hemoglobin 10.1 g/dL (14.0-18.0); Manual Diff?? YES; Mean Corpuscular HGB CONC 31.1 g/dL (32.0-36.0); Mean Corpuscular Hemoglobin 29.1 pg (27.0-31.0); Mean Corpuscular Volume 93.7 fl (78.0-98.0); Mean Platelet Volume 9.5 fL (7.4-10.4); Platelet Count 273 10x3/uL (130-400); RBC Distribution Width 15.2 % (11.5-14.5); Red Blood Cell (RBC) Count 3.47 mill/uL (4.70-6.10); White Blood Cell (WBC) Count 11.7 10x3/uL (4.8-10.8)
[2023-01-17 11:03] LABS: Anion Gap 13 mmol/L (10-20); BUN (Urea Nitrogen) 16 mg/dL (8.4-25.7); Calc. Creatinine Clearance 123 mL/min (70-130); Calcium 8.3 mg/dL (7.8-10.44); Carbon Dioxide 28 mmol/L (23-31); Chloride 101 mmol/L (98-107); Estimated GFR 89; Glucose 100 mg/dL (83-110); Potassium 5.3 mmol/L (3.5-5.1); Sodium 137 mmol/L (136-145)
[2023-01-17 11:06] LABS: Delete Auto Diff?? YES
[2023-01-17 12:42] LABS: Band 4 % (5-11); Burr Cells SLIGHT = 2-5 cells HPF (0-1); CellaVision Operator ID LAB.GE; Eosinophils 4 % (0-10); Lymphocytes 4 % (21-51); Metamyelocyte 2 % (0-0); Monocytes 7 % (0-10); Myelocyte 4 % (0-0); Neutrophil 74 % (42-75); Platelet Adequacy Comment Platelets Normal; Polychromasia SLIGHT = 2-3 cells HPF (0-2); Smudge Cells 13.9 %; Total Cell Count 101
[2023-01-17] MEDS: traMADol HCl 50 MG TAB PO PRN (16:21)
[2023-01-17] MEDS: Rosuvastatin 20 MG TAB PO SCH (21:51)
[2023-01-17] MEDS: Tamsulosin HCl 0.4 MG CAP PO SCH (21:52)
[2023-01-18 07:09] LABS: Hemoglobin 11.2 g/dL (14.0-18.0); Manual Diff?? YES; Mean Corpuscular HGB CONC 30.3 g/dL (32.0-36.0); Mean Corpuscular Hemoglobin 28.9 pg (27.0-31.0); Mean Corpuscular Volume 95.6 fl (78.0-98.0); Mean Platelet Volume 10.2 fL (7.4-10.4); Platelet Count 198 10x3/uL (130-400); RBC Distribution Width 15.7 % (11.5-14.5); Red Blood Cell (RBC) Count 3.87 mill/uL (4.70-6.10); White Blood Cell (WBC) Count 12.4 10x3/uL (4.8-10.8)
[2023-01-18 07:30] LABS: Delete Auto Diff?? YES
[2023-01-18 07:35] LABS: Anion Gap 14 mmol/L (10-20); BUN (Urea Nitrogen) 15 mg/dL (8.4-25.7); Calc. Creatinine Clearance 131 mL/min (70-130); Calcium 8.6 mg/dL (7.8-10.44); Carbon Dioxide 26 mmol/L (23-31); Chloride 102 mmol/L (98-107); Estimated GFR 91; Glucose 97 mg/dL (83-110); Potassium 5.4 mmol/L (3.5-5.1); Sodium 137 mmol/L (136-145)
[2023-01-18 07:52] LABS: Band 2 % (5-11); Burr Cells MODERATE= 6-15 cells HPF (0-1); CellaVision Operator ID LAB.GE; Eosinophils 1 % (0-10); Lymphocytes 4 % (21-51); Metamyelocyte 5 % (0-0); Monocytes 3 % (0-10); Myelocyte 3 % (0-0); Neutrophil 82 % (42-75); Platelet Adequacy Comment Platelets Normal; Polychromasia MODERATE = 3-4 cells HPF (0-2); Total Cell Count 98
[2023-01-18] MEDS ORDERED: Furosemide 20 MG TAB PO SCH (09:00)
[2023-01-18] MEDS: Morphine 2 MG/ML VIAL SLOW IVP PRN (09:33)
[2023-01-18] MEDS: Dronedarone HCl 400 MG TAB PO SCH (09:35)
[2023-01-18] MEDS: Cyanocobalamin (Vitamin B-12) 1,000 MCG TAB PO SCH (09:35)
[2023-01-18] MEDS: Sulfameth/Trimethoprim DS 800-160mg TAB PO SCH (09:35)
[2023-01-18] MEDS: Famotidine 20 MG TAB PO SCH (09:35)
[2023-01-18] MEDS: Cholecalciferol 1,000 UNITS (25 MCG) TAB PO SCH (09:36)
[2023-01-18 11:16] VITALS: BP 119/75; TEMP 97.4
== END 2023-01-18 13:04 | DRG 570 ==
LOC: ERS 01:54 → 2NO 04:30 → T4-A 01-15 12:19
PROVIDERS: ADMIT Student in an Organized Health Care Education/Training Program; ATTEND Internal Medicine
PROC: 0JB70ZZ Excision of Back Subcutaneous Tissue and Fascia, Open Approach (ICD-10-PCS; principal; 2023-01-13)
DX: L89.154 Pressure ulcer of sacral region, stage 4 (principal); J96.01 Acute respiratory failure with hypoxia; J98.11 Atelectasis; J90 Pleural effusion, not elsewhere classified; E46 Unspecified protein-calorie malnutrition; L03.818 Cellulitis of other sites; I96 Gangrene, not elsewhere classified; I48.20 Chronic atrial fibrillation, unspecified; N12 Tubulo-interstitial nephritis, not specified as acute or chronic; N30.00 Acute cystitis without hematuria; E87.6 Hypokalemia; E78.5 Hyperlipidemia, unspecified; I10 Essential (primary) hypertension; I25.10 Atherosclerotic heart disease of native coronary artery without angina pectoris; E66.01 Morbid (severe) obesity due to excess calories; Z96.653 Presence of artificial knee joint, bilateral; R13.12 Dysphagia, oropharyngeal phase; D64.9 Anemia, unspecified; Z51.5 Encounter for palliative care; Z79.899 Other long term (current) drug therapy; Z95.5 Presence of coronary angioplasty implant and graft; Z98.890 Other specified postprocedural states; Z68.38 Body mass index [BMI] 38.0-38.9, adult
CPT/HCPCS: 36415; 51702; 71045; 74177; 74230; 80048; 80053; 81001; 82805; 83605; 83735; 84100; 84484; 85025; 87040; 87077; 87086; 87186; 93005; 96365; 96366; 96367; 97139; J0171; J0696; J2272; J2543; J2704; J3010; J3370; J3370-JW; J3475; J3480; J3490; J7120; P9047; Q9967; S0020

== ENCOUNTER 2023-02-23 18:20 | Emergency (ER) | payer MEDICARE ==
[2023-02-23] MEDS ORDERED: Potassium Chloride 20 MEQ TAB ONE (19:29)
[2023-02-23 20:53] LABS: #Monocytes 0.7 thou/uL (0.11-0.59); %Basophils 0.2 % (0.0-1.0); %Eosinophils 0.1 % (0.0-10.0); %Lymphocytes 2.1 % (21.0-51.0); %Monocytes 4.8 % (0.0-10.0); %Neutrophils 91.5 % (42.0-75.0); Hematocrit 39.4 % (42.0-52.0); Hemoglobin 12.6 g/dL (14.0-18.0); Mean Corpuscular Hemoglobin 30.4 pg (27.0-31.0); Mean Corpuscular Volume 94.9 fl (78.0-98.0); Mean Platelet Volume 10.9 fL (7.4-10.4); Platelet Count 221 10x3/uL (130-400); Red Blood Cell (RBC) Count 4.15 mill/uL (4.70-6.10); White Blood Cell (WBC) Count 14.3 10x3/uL (4.8-10.8)
[2023-02-23 21:22] LABS: ALT (SGPT) 8 U/L (8-55); AST (SGOT) 16 U/L (5-34); Albumin 2.5 g/dL (3.4-4.8); Alkaline Phosphatase 75 U/L (40-110); Anion Gap 11 mmol/L (10-20); BUN (Urea Nitrogen) 10 mg/dL (8.4-25.7); Bilirubin, Total 1.3 mg/dL (0.2-1.2); Calc. Creatinine Clearance 0 mL/min (70-130); Calcium 7.9 mg/dL (7.8-10.44); Carbon Dioxide 35 mmol/L (23-31); Chloride 102 mmol/L (98-107); Estimated GFR 101; Globulin 2.2 g/dL (2.4-3.5); Glucose 114 mg/dL (83-110); Potassium 2.8 mmol/L (3.5-5.1); Protein, Total 4.7 g/dL (5.8-8.1); Sodium 145 mmol/L (136-145)
[2023-02-23] MEDS ORDERED: Potassium Chloride 20 MEQ (100 mL) BAG ONE (23:47)
== END 2023-02-24 04:06 ==
LOC: ERS 18:20
DX: U07.1 COVID-19 (principal); E87.5 Hyperkalemia; I10 Essential (primary) hypertension; I25.10 Atherosclerotic heart disease of native coronary artery without angina pectoris; E78.5 Hyperlipidemia, unspecified; Z79.82 Long term (current) use of aspirin; Z79.899 Other long term (current) drug therapy
CPT/HCPCS: 36415; 80053; 85025; 96374; J3480

== ENCOUNTER 2023-03-02 10:52 | Inpatient (IN) | payer MEDICARE ==
[2023-03-02 11:34] LABS: #Monocytes 1.2 thou/uL (0.11-0.59); %Basophils 0.1 % (0.0-1.0); %Eosinophils 0.2 % (0.0-10.0); %Lymphocytes 2.4 % (21.0-51.0); %Monocytes 8.5 % (0.0-10.0); %Neutrophils 87.9 % (42.0-75.0); Hematocrit 44.2 % (42.0-52.0); Hemoglobin 13.7 g/dL (14.0-18.0); Mean Corpuscular Hemoglobin 29.7 pg (27.0-31.0); Mean Corpuscular Volume 95.9 fl (78.0-98.0); Mean Platelet Volume 11.6 fL (7.4-10.4); Platelet Count 126 10x3/uL (130-400); RBC Distribution Width 16.7 % (11.5-14.5); Red Blood Cell (RBC) Count 4.61 mill/uL (4.70-6.10); White Blood Cell (WBC) Count 13.6 10x3/uL (4.8-10.8)
[2023-03-02 11:34] LABS: Bacteria/HPF 3+ HPF (None Seen); Bilirubin Negative (Negative); Blood, Urine Trace (Negative); CAUTI Indications for Culture Alt mental st,lethar; Clarity Turbid (Clear); Glucose, Urine (Dipstick) Normal (Negative); Ketone, Urine 10 mg/dL (Negative); Leukocyte 500 Leu/uL (Negative); Nitrite Negative (Negative); Protein, Urine (Dipstick) 50 mg/dL (Neg-Trace); RBC/HPF Greater than 50 HPF (0-3); Specific Gravity, Urine 1.024 (1.002-1.036); Squamous Epithelial None Seen HPF (0-3); WBC/HPF Greater than 50 HPF (0-3); Yeast-Budding 2+ HPF (None Seen)
[2023-03-02 11:35] LABS: Urine Culture Reflex Yes Yes
[2023-03-02 11:54] LABS: ALT (SGPT) 9 U/L (8-55); AST (SGOT) 16 U/L (5-34); Albumin 2.7 g/dL (3.4-4.8); Alkaline Phosphatase 92 U/L (40-110); Anion Gap 14 mmol/L (10-20); BUN (Urea Nitrogen) 12 mg/dL (8.4-25.7); Bilirubin, Total 1.6 mg/dL (0.2-1.2); Calc. Creatinine Clearance 0 mL/min (70-130); Calcium 8.1 mg/dL (7.8-10.44); Carbon Dioxide 33 mmol/L (23-31); Chloride 101 mmol/L (98-107); Estimated GFR 96; Globulin 2.4 g/dL (2.4-3.5); Glucose 78 mg/dL (83-110); Lipase Less than 4 U/L (8-78); Potassium 2.9 mmol/L (3.5-5.1); Protein, Total 5.1 g/dL (5.8-8.1); Sodium 145 mmol/L (136-145)
[2023-03-02 11:58] LABS: Troponin I 0.019 ng/mL (< 0.028)
[2023-03-02 12:14] LABS: CellaVision Operator ID LAB.GE; Platelet Adequacy Comment Platelets Decreased; Polychromasia SLIGHT = 2-3 cells HPF (0-2)
[2023-03-02] MEDS ORDERED: Potassium Chloride 20 MEQ TAB ONE (12:25)
[2023-03-02] MEDS ORDERED: Potassium Chloride 20 MEQ (100 mL) BAG ONE (12:26)
[2023-03-02] MEDS ORDERED: Furosemide 20 MG (2 mL) VIAL ONE (13:15)
[2023-03-02] MEDS ORDERED: cefTRIAXone\\ROCEPHIN 2 GM in Sodium Chloride 0.9% 100 ML IVPB SCH (14:00)
[2023-03-02] MEDS ORDERED: Ondansetron PF 4 MG/2 ML Vial IVP PRN (14:01)
[2023-03-02] MEDS ORDERED: Ondansetron ODT 4 MG TAB PO PRN ×2 (14:01→15:17)
[2023-03-02] MEDS ORDERED: Acetaminophen 325 MG TAB PO PRN (14:01)
[2023-03-02] MEDS ORDERED: Enoxaparin 40 MG (0.4 mL) SYRINGE SC SCH (14:15)
[2023-03-02] MEDS ORDERED: Sodium Chloride 0.9% 100 ML ONE ×2 (14:27→15:44)
[2023-03-02] MEDS ORDERED: cefTRIAXone (ROCEPHIN) 1 GM VIAL ONE (14:27)
[2023-03-02 14:51] LABS: SARS-CoV-2 NAA Rapid Test DETECTED (NotDetected)
[2023-03-02 14:56] LABS: Troponin I Less than 0.010 ng/mL (< 0.028)
[2023-03-02] MEDS ORDERED: Electrolyte Replacement Protocol 1 EACH FS SCH (15:00)
[2023-03-02] MEDS: Cefepime 2 GM in Sodium Chloride 0.9% 100 ML IVPB SCH (15:42)
[2023-03-02] MEDS ORDERED: Enoxaparin 40 MG (0.4 mL) SYRINGE ONE (15:44)
[2023-03-02] MEDS ORDERED: Cefepime 2 GM VIAL ONE (15:44)
[2023-03-02] MEDS ORDERED: Vancomycin 2.5 GM in Sodium Chloride 0.9% 500 ML IVPB SCH (17:00)
[2023-03-02] MEDS: Artificial Tear Sol 15 ML BOT EA EYE SCH ×2 (19:10→22:03)
[2023-03-02] MEDS: Dronedarone HCl 400 MG TAB PO SCH (19:10)
[2023-03-02 21:02] LABS: Troponin I 0.014 ng/mL (< 0.028)
[2023-03-02] MEDS: Tamsulosin HCl 0.4 MG CAP PO SCH (22:03)
[2023-03-03] MEDS: Artificial Tear Sol 15 ML BOT EA EYE SCH ×3 (01:00→14:55)
[2023-03-03] MEDS: traMADol HCl 50 MG TAB PO PRN ×2 (02:11→21:39)
[2023-03-03] MEDS: Cefepime 2 GM in Sodium Chloride 0.9% 100 ML IVPB SCH ×2 (02:12→14:54)
[2023-03-03] MEDS: Vancomycin (BATCH) 1.25 GM in Premix 1 BAG IVPB SCH ×2 (05:06→17:53)
[2023-03-03 06:22] LABS: #Eosinphils 0.1 thou/uL (0.0-0.7); #Monocytes 0.5 thou/uL (0.11-0.59); %Basophils 0.3 % (0.0-1.0); %Eosinophils 1.2 % (0.0-10.0); %Lymphocytes 6.6 % (21.0-51.0); %Monocytes 8.1 % (0.0-10.0); %Neutrophils 82.5 % (42.0-75.0); Hemoglobin 13.5 g/dL (14.0-18.0); Mean Corpuscular HGB CONC 30.7 g/dL (32.0-36.0); Mean Corpuscular Hemoglobin 29.7 pg (27.0-31.0); Mean Corpuscular Volume 96.7 fl (78.0-98.0); Mean Platelet Volume 11.8 fL (7.4-10.4); Platelet Count 111 10x3/uL (130-400); RBC Distribution Width 16.7 % (11.5-14.5); Red Blood Cell (RBC) Count 4.55 mill/uL (4.70-6.10); White Blood Cell (WBC) Count 6.1 10x3/uL (4.8-10.8)
[2023-03-03 06:53] LABS: Anion Gap 13 mmol/L (10-20); BUN (Urea Nitrogen) 13 mg/dL (8.4-25.7); Calc. Creatinine Clearance 132 mL/min (70-130); Calcium 7.3 mg/dL (7.8-10.44); Carbon Dioxide 27 mmol/L (23-31); Chloride 105 mmol/L (98-107); Estimated GFR 97; Glucose 57 mg/dL (83-110); Potassium 3.6 mmol/L (3.5-5.1); Sodium 141 mmol/L (136-145)
[2023-03-03] MEDS: Cholecalciferol 1,000 UNITS (25 MCG) TAB PO SCH (10:14)
[2023-03-03] MEDS: Floranex 1 GM Packet PO SCH ×2 (10:14→10:15)
[2023-03-03] MEDS: Dronedarone HCl 400 MG TAB PO SCH ×2 (10:15→17:53)
[2023-03-03] MEDS: Cyanocobalamin (Vitamin B-12) 1,000 MCG TAB PO SCH (10:15)
[2023-03-03] MEDS: Aspirin Chewable 81 MG TAB PO SCH (10:16)
[2023-03-03] MEDS: Iron Polysaccharides Complex 150 MG CAP PO SCH (10:16)
[2023-03-03] MEDS: Multivit, Therapeutic 1 TAB PO SCH (10:16)
[2023-03-03] MEDS: Ascorbic Acid 500 mg Chewable Tablet PO SCH (10:16)
[2023-03-03] MEDS: Furosemide 20 MG TAB PO SCH (10:16)
[2023-03-03] MEDS: Rosuvastatin 20 MG TAB PO SCH (10:16)
[2023-03-03] MEDS: Zinc Sulfate 220 MG CAP PO SCH (10:16)
[2023-03-03] MEDS: Polyethylene Glycol OPTH DROP 15 ML BOT EA EYE SCH ×3 (14:54→21:16)
[2023-03-03] MEDS: Senokot 8.6 MG TAB PO SCH (17:54)
[2023-03-03] MEDS: Tamsulosin HCl 0.4 MG CAP PO SCH (21:16)
[2023-03-03] MEDS: Guaifenesin DM 100-10/5 ML UDCUP PO PRN (21:38)
[2023-03-04 04:55] LABS: #Eosinphils 0.1 thou/uL (0.0-0.7); #Monocytes 0.8 thou/uL (0.11-0.59); #Neutrophils 8.6 thou/uL (1.40-6.50); %Basophils 0.3 % (0.0-1.0); %Eosinophils 1.3 % (0.0-10.0); %Lymphocytes 5.3 % (21.0-51.0); %Monocytes 7.7 % (0.0-10.0); %Neutrophils 84.2 % (42.0-75.0); Hematocrit 40.7 % (42.0-52.0); Hemoglobin 12.3 g/dL (14.0-18.0); Mean Corpuscular HGB CONC 30.2 g/dL (32.0-36.0); Mean Corpuscular Hemoglobin 28.5 pg (27.0-31.0); Mean Corpuscular Volume 94.4 fl (78.0-98.0); Mean Platelet Volume 11.3 fL (7.4-10.4); RBC Distribution Width 16.6 % (11.5-14.5); Red Blood Cell (RBC) Count 4.31 mill/uL (4.70-6.10); White Blood Cell (WBC) Count 10.2 10x3/uL (4.8-10.8)
[2023-03-04 05:21] LABS: Anion Gap 10 mmol/L (10-20); BUN (Urea Nitrogen) 11 mg/dL (8.4-25.7); Calc. Creatinine Clearance 137 mL/min (70-130); Calcium 7.5 mg/dL (7.8-10.44); Carbon Dioxide 31 mmol/L (23-31); Chloride 102 mmol/L (98-107); Estimated GFR 98; Glucose 75 mg/dL (83-110); Potassium 3.4 mmol/L (3.5-5.1); Sodium 140 mmol/L (136-145); Vancomycin, Trough 20.6 ug/mL
[2023-03-04 05:27] LABS: Platelet Count 119 10x3/uL (130-400)
[2023-03-04] MEDS: Cefepime 2 GM in Sodium Chloride 0.9% 100 ML IVPB SCH ×2 (05:50→14:44)
[2023-03-04] MEDS: Polyethylene Glycol OPTH DROP 15 ML BOT EA EYE SCH ×6 (05:51→22:13)
[2023-03-04] MEDS: Vancomycin (BATCH) 1.25 GM in Premix 1 BAG IVPB SCH ×2 (07:39→18:08)
[2023-03-04] MEDS ORDERED: Potassium Chloride 20 MEQ TAB PO SCH (08:00)
[2023-03-04] MEDS: Zinc Sulfate 220 MG CAP PO SCH (11:24)
[2023-03-04] MEDS: Cholecalciferol 1,000 UNITS (25 MCG) TAB PO SCH (11:24)
[2023-03-04] MEDS: Ascorbic Acid 500 mg Chewable Tablet PO SCH (11:25)
[2023-03-04] MEDS: Multivit, Therapeutic 1 TAB PO SCH (11:25)
[2023-03-04] MEDS: Dronedarone HCl 400 MG TAB PO SCH ×2 (11:25→18:08)
[2023-03-04] MEDS: Aspirin Chewable 81 MG TAB PO SCH (11:25)
[2023-03-04] MEDS: Rosuvastatin 20 MG TAB PO SCH (11:25)
[2023-03-04] MEDS: Cyanocobalamin (Vitamin B-12) 1,000 MCG TAB PO SCH (11:26)
[2023-03-04] MEDS: Furosemide 20 MG TAB PO SCH (11:26)
[2023-03-04] MEDS: Iron Polysaccharides Complex 150 MG CAP PO SCH (11:26)
[2023-03-04] MEDS: Senokot 8.6 MG TAB PO SCH (11:28)
[2023-03-04] MEDS ORDERED: Senokot 8.6 MG TAB PO SCH (11:45)
[2023-03-04] MEDS: Tamsulosin HCl 0.4 MG CAP PO SCH (20:08)
[2023-03-04] MEDS: traMADol HCl 50 MG TAB PO PRN (20:08)
[2023-03-04] MEDS: Guaifenesin DM 100-10/5 ML UDCUP PO PRN (20:09)
[2023-03-05] MEDS: Cefepime 2 GM in Sodium Chloride 0.9% 100 ML IVPB SCH ×2 (03:01→16:04)
[2023-03-05] MEDS: Polyethylene Glycol OPTH DROP 15 ML BOT EA EYE SCH ×6 (05:30→22:36)
[2023-03-05] MEDS: Vancomycin (BATCH) 1.25 GM in Premix 1 BAG IVPB SCH (05:59)
[2023-03-05] MEDS: Cyanocobalamin (Vitamin B-12) 1,000 MCG TAB PO SCH (10:37)
[2023-03-05] MEDS: Ascorbic Acid 500 mg Chewable Tablet PO SCH (10:37)
[2023-03-05] MEDS: Cholecalciferol 1,000 UNITS (25 MCG) TAB PO SCH (10:38)
[2023-03-05] MEDS: Furosemide 20 MG TAB PO SCH (10:38)
[2023-03-05] MEDS: Rosuvastatin 20 MG TAB PO SCH (10:38)
[2023-03-05] MEDS: Aspirin Chewable 81 MG TAB PO SCH (10:38)
[2023-03-05] MEDS: Multivit, Therapeutic 1 TAB PO SCH (10:38)
[2023-03-05] MEDS: Iron Polysaccharides Complex 150 MG CAP PO SCH (10:39)
[2023-03-05] MEDS: Zinc Sulfate 220 MG CAP PO SCH (10:39)
[2023-03-05] MEDS: Senokot 8.6 MG TAB PO SCH (10:39)
[2023-03-05] MEDS: Floranex 1 GM Packet PO SCH (10:40)
[2023-03-05] MEDS: Dronedarone HCl 400 MG TAB PO SCH ×2 (10:40→18:49)
[2023-03-05] MEDS ORDERED: Vancomycin (BATCH) 1.25 GM in Premix 1 BAG IVPB SCH (15:15)
[2023-03-05 19:27] LABS: #Eosinphils 0.2 thou/uL (0.0-0.7); %Basophils 0.4 % (0.0-1.0); %Eosinophils 1.4 % (0.0-10.0); %Lymphocytes 5.9 % (21.0-51.0); %Neutrophils 81.6 % (42.0-75.0); Hematocrit 40.1 % (42.0-52.0); Hemoglobin 12.7 g/dL (14.0-18.0); Mean Corpuscular HGB CONC 31.7 g/dL (32.0-36.0); Mean Corpuscular Hemoglobin 29.6 pg (27.0-31.0); Mean Corpuscular Volume 93.5 fl (78.0-98.0); Platelet Count 112 10x3/uL (130-400); RBC Distribution Width 16.6 % (11.5-14.5); Red Blood Cell (RBC) Count 4.29 mill/uL (4.70-6.10); White Blood Cell (WBC) Count 11.1 10x3/uL (4.8-10.8)
[2023-03-05 19:57] LABS: Anion Gap 11 mmol/L (10-20); BUN (Urea Nitrogen) 8 mg/dL (8.4-25.7); Calc. Creatinine Clearance 149 mL/min (70-130); Calcium 7.6 mg/dL (7.8-10.44); Carbon Dioxide 32 mmol/L (23-31); Chloride 101 mmol/L (98-107); Estimated GFR 100; Glucose 95 mg/dL (83-110); Potassium 3.5 mmol/L (3.5-5.1); Sodium 140 mmol/L (136-145)
[2023-03-05] MEDS: Cefdinir 300 MG CAP PO SCH (22:01)
[2023-03-05] MEDS: Tamsulosin HCl 0.4 MG CAP PO SCH (22:01)
[2023-03-05] MEDS: Guaifenesin DM 100-10/5 ML UDCUP PO PRN (22:01)
[2023-03-05] MEDS: traMADol HCl 50 MG TAB PO PRN (22:02)
[2023-03-05] MEDS ORDERED: FLU VACC QS2023(65UP)/MF59C/PF 60 MCG/0.5 ML SYRINGE IM ONE (23:45)
[2023-03-06] MEDS: Polyethylene Glycol OPTH DROP 15 ML BOT EA EYE SCH ×4 (02:33→13:14)
[2023-03-06 05:29] LABS: Anion Gap 13 mmol/L (10-20); BUN (Urea Nitrogen) 8 mg/dL (8.4-25.7); Calc. Creatinine Clearance 134 mL/min (70-130); Calcium 7.4 mg/dL (7.8-10.44); Carbon Dioxide 28 mmol/L (23-31); Chloride 102 mmol/L (98-107); Estimated GFR 97; Glucose 109 mg/dL (83-110); Sodium 139 mmol/L (136-145)
[2023-03-06] MEDS: Cholecalciferol 1,000 UNITS (25 MCG) TAB PO SCH (09:10)
[2023-03-06] MEDS: Cyanocobalamin (Vitamin B-12) 1,000 MCG TAB PO SCH (09:10)
[2023-03-06] MEDS: Cefdinir 300 MG CAP PO SCH (09:10)
[2023-03-06] MEDS: Aspirin Chewable 81 MG TAB PO SCH (09:10)
[2023-03-06] MEDS: Senokot 8.6 MG TAB PO SCH (09:10)
[2023-03-06] MEDS: Iron Polysaccharides Complex 150 MG CAP PO SCH (09:11)
[2023-03-06] MEDS: Rosuvastatin 20 MG TAB PO SCH (09:11)
[2023-03-06] MEDS: Ascorbic Acid 500 mg Chewable Tablet PO SCH (09:11)
[2023-03-06] MEDS: Floranex 1 GM Packet PO SCH (09:11)
[2023-03-06] MEDS: Multivit, Therapeutic 1 TAB PO SCH (09:11)
[2023-03-06] MEDS: Dronedarone HCl 400 MG TAB PO SCH (09:11)
[2023-03-06] MEDS: Furosemide 20 MG TAB PO SCH (09:11)
[2023-03-06] MEDS: Zinc Sulfate 220 MG CAP PO SCH (09:20)
[2023-03-06 11:30] VITALS: BMI 29.8
[2023-03-06] MEDS: traMADol HCl 50 MG TAB PO PRN (15:14)
[2023-03-06 15:40] VITALS: BP 119/65; TEMP 97.5
== END 2023-03-06 14:15 | DRG 177 ==
LOC: ERS 10:52 → ERHOLD 13:58 → 2NO 18:18 → OBSVTOIN 03-03 14:44
PROVIDERS: ADMIT Internal Medicine; ATTEND Internal Medicine
DX: J15.69 Pneumonia due to other Gram-negative bacteria (principal); I50.33 Acute on chronic diastolic (congestive) heart failure; U07.1 COVID-19; J96.21 Acute and chronic respiratory failure with hypoxia; T83.511A Infection and inflammatory reaction due to indwelling urethral catheter, initial encounter; N39.0 Urinary tract infection, site not specified; I82.621 Acute embolism and thrombosis of deep veins of right upper extremity; I25.10 Atherosclerotic heart disease of native coronary artery without angina pectoris; I48.91 Unspecified atrial fibrillation; E66.9 Obesity, unspecified; E78.5 Hyperlipidemia, unspecified; E87.6 Hypokalemia; Y83.8 Other surgical procedures as the cause of abnormal reaction of the patient, or of later complication, without mention of misadventure at the time of the procedure; D53.9 Nutritional anemia, unspecified; F03.90 Unspecified dementia, unspecified severity, without behavioral disturbance, psychotic disturbance, mood disturbance, and anxiety; I11.0 Hypertensive heart disease with heart failure; Z95.5 Presence of coronary angioplasty implant and graft; Z98.890 Other specified postprocedural states; Z79.899 Other long term (current) drug therapy; Z79.82 Long term (current) use of aspirin; Z68.29 Body mass index [BMI] 29.0-29.9, adult
CPT/HCPCS: 36415; 71045; 80048; 80053; 80202; 81001; 83605; 83690; 83735; 83880; 84484; 85025; 87040; 87086; 93005; 96365; 96366; 96367; 96372; 96375; 96376; 97139; G0378; J0692; J0696; J1650; J1940; J3370; J3480; J3490; J7030

== ENCOUNTER 2023-03-19 05:26 | Emergency (ER) | payer MEDICARE ==
[2023-03-19] MEDS ORDERED: Sodium Bicarb 50 MEQ/50 ML Abboject 8.4% SYRINGE ONE (07:00)
[2023-03-19] MEDS ORDERED: EPINEPHrine 1 MG/10 ML Abboject SYRINGE ONE (07:00)
== END 2023-03-19 06:54 | disposition expired ==
LOC: ERS 05:26
DX: I46.9 Cardiac arrest, cause unspecified (principal)
CPT/HCPCS: 31500; 92950; J0171